=== PATIENT | female | born 1975 | race Caucasian/White ===

== ENCOUNTER → 2024-02-06 10:21 | Outpatient (REF) | payer OTHER, SELFPAY | LOC: RAD 10:21 | PROVIDERS: ATTENDING PHYSICIAN Nurse Practitioner; FAMILY PHYSICIAN Internal Medicine | DX: J40 Bronchitis, not specified as acute or chronic (principal) | CPT/HCPCS: 71046 ==

== ENCOUNTER → 2024-02-21 06:44 | Outpatient (REF) | payer OTHER, SELFPAY | LOC: PAVMRI 06:44 | PROVIDERS: ATTENDING PHYSICIAN Nurse Practitioner Family; FAMILY PHYSICIAN Internal Medicine | DX: I67.1 Cerebral aneurysm, nonruptured (principal) | CPT/HCPCS: 70544 ==

== ENCOUNTER → 2025-01-14 13:02 | Outpatient (REF) | payer OTHER, SELFPAY | LOC: RAD 13:02 | PROVIDERS: ATTENDING PHYSICIAN Nurse Practitioner; FAMILY PHYSICIAN Internal Medicine | DX: J40 Bronchitis, not specified as acute or chronic (principal) | CPT/HCPCS: 71046 ==

== ENCOUNTER 2025-06-21 13:10 | Emergency (ER) | payer OTHER, SELFPAY ==
[2025-06-21 13:12] VITALS: BP 123/89
[2025-06-21 14:00] VITALS: BP 127/87
[2025-06-21 14:01] VITALS: BMI 25.6
[2025-06-21 14:55] LABS: Hematocrit 39.6 % (37.0-47.0); Hemoglobin 14.1 g/dL (12.0-16.0); Mean Corp Hgb Conc. 35.6 g/dL (33.0-37.0); Mean Corpuscular Volume 87.8 fL (81.0-99.0); Nucleated Red Blood Cells % 0 %; Platelet Count 211 10^3/uL (130-400); Red Cell Dist. Width 12.6 % (11.5-14.5)
[2025-06-21 15:00] VITALS: BP 113/68
[2025-06-21 15:06] LABS: Blood Urea Nitrogen 19 mg/dl (7-17); Calcium 9.7 mg/dl (8.4-10.2); Carbon Dioxide 29 mmol/L (22-30); Chloride 103 mmol/L (98-107); Estimated Creatinine Clearance 73 ml/min; Glucose 91 mg/dl (70-99); Potassium 4.4 mmol/L (3.5-5.1); Sodium 138 mmol/L (135-145); eGFR > 60.00
--- NOTE | 2025-06-21 15:09 | ED.GENMED ---
History of Present Illness
General
Chief Complaint: Dizziness
Time Seen by Provider: 06/21/25 14:10
History of Present Illness
History of Present Illness:
Patient is a 50-year-old female with past medical history of brain aneurysm status post coils and non-Hodgkin's lymphoma in remission since 2010 who was sent in by her neurosurgery team as she has been complaining of headaches and 'feeling off' for
the past 2 weeks. Did a telehealth visit with her team this morning and they sent her to the ER for imaging. She has had a dull ache since 1 to 2 weeks that is episodic in nature. Also reports that while watching TV and seeing things across the
screen she has become nauseous and feel off balance. No recent falls.
Past History
Past History
ED Past Medical History: Other (Back pain) and Other (Hodgkin's lymphoma, back pain)
Social History
Tobacco: Non-smoker
Alcohol: Occasional
Personal:
Living: with family
Employment: Employed
Family History
Family History: Other (Brother with brain aneurysm)
Phy Exam
General Physical Exam
General Presentation: well appearing and no apparent distress
General Skin: warm and dry
General Habitus: normal
General Mental: alert
General Hydration: appears well hydrated
ENT Exam
ENT Exam: EOMI, pharynx normal, neck supple and normocephalic
Eye Exam
Eye Exam: PERRL, cornea clear and conjunctiva normal
Cardiovascular Exam
Cardiovascular Exam: regular rate/rhythm, no edema, no murmur and normal peripheral pulses
Pulmonary Exam
Pulmonary Exam: lungs clear, no respiratory distress, no rales, no crackles, no rhonchi, no stridor, no wheezing and no cough
Gastrointestinal Exam
Gastrointestinal Exam: normal bowel sounds, non tender, soft, no organomegaly, no pulsatile mass and non distended
Neurological Exam
Neurological Exam: alert, oriented x3, no motor deficits and speech normal
Musculoskeletal Exam
Musculoskeletal Exam: full ROM and no edema
Skin Exam
Skin Exam: normal color, warm/dry, no rash and no petechia
Psychiatric Exam
Psychiatric Exam: normal mood/affect
Course
Orders/Labs/Results
Orders:
Orders
06/21/25 14:28
CT Head & Neck Angio W/wo IV Urgent
Comment:
Reason For Exam: dizziness
06/21/25 14:40
Basic Metabolic Panel Urgent
Complete Blood Count/With Diff Urgent
06/21/25 15:03
Diphenhydramine [Benadryl] 50 mg IV NOW STA
Hydrocortisone Sod Succinate [Solu-Cortef] 200 mg IV NOW STA
Abnormal Lab Results
06/21/25
14:40
MCH 31.3 H pg
(27.0-31.0)
BUN 19 H mg/dl
(7-17)
06/21/25 14:40
06/21/25 14:40
Vital Signs
Initial and Last Documented VS:
Initial Vital Signs
Temp Pulse Resp BP Pulse Ox
36.5 C 74 19 123/89 98
06/21/25 13:12 06/21/25 13:12 06/21/25 13:12 06/21/25 13:12 06/21/25 13:12
Last Documented Vital Signs
Temp Pulse Resp BP Pulse Ox
36.5 C 74 18 134/76 98
06/21/25 13:12 06/21/25 17:40 06/21/25 17:40 06/21/25 17:40 06/21/25 17:40
MDM/Problems Addressed
Differential Diagnosis Includes:
BC movements. No worsening leukopenia or anemia. BMP also within normal limits. CT head and neck angio obtained and negative for any new intracerebral aneurysms or intracranial pathology. Discussed this with the patient and she states she is
currently headache free. Will continue to follow-up with neurosurgery and her primary care doctor if headaches continue. No neurologic deficits. Will discharge from the ER with strict return precautions.
*Pulse Oximetry
SaO2: 100
Oxygen Mode of Delivery: Room air
Patient hypoxic: no
*Critical Care Note
Total Time (30-74mins, 75-104mins- exclusive of procedures): Not Applicable
ED Attending Note
-
Portions of this chart may have been created with voice recognition software.� Occasional wrong word or��sound alike� substitutions may have occurred due to the inherent limitations of voice recognition software.
Discharge Plan
Departure
Patient Disposition: Home (Routine Discharge)
Date of Disposition: 06/21/25
Time of Disposition: 17:52
Patient with high blood pressure during this ER visit?: No
Discharge Problem:
Frequent headaches, History of intracranial aneurysm
Instructions: Headache in adults - ED (DC)
Prescriptions:
No Action
loratadine 10 MG tablet
10 mg PO DAILY
omeprazole magnesium [Prilosec OTC] 20 MG tablet,delayed release (DR/EC)
40 mg PO DAILY
Referrals:
Mae Gordillo MD [Family Provider, Internal Medicine]
Activity Restrictions/Additional Instructions:
May take Tylenol or Motrin if the headache recurs. Follow-up with your primary care doctor if you continue to have these headaches. Workup in the ER was negative for any acute intracranial process on imaging.
Interventions
Interventions:
*General Assessment Last Done: 06/21/25 13:15
*Neglect/Abuse Screening Last Done: 06/21/25 13:15
*ED COVID-19 Vaccine History Last Done: 06/21/25 13:15
*ED Influenza Vaccine History Last Done: 06/21/25 13:15
[facility] Fall Risk Assessment Tool Last Done: 06/21/25 13:11
*Risk Screen - Suicide (C-SSRS) Last Done: 06/21/25 13:15
ED- Neurological Assessment Last Done: 06/21/25 16:23
ED Swallowing Screen Last Done: 06/21/25 14:04
Discharge Date and Time
Print Language: BHUTANESE
[2025-06-21] MEDS: SOLU-CORTEF 200 MG IV (15:34)
[2025-06-21] MEDS: BENADRYL 50 MG IV (15:34)
[2025-06-21 17:40] VITALS: BP 134/76
== END 2025-06-21 18:10 | disposition home or self-care (01) ==
LOC: EMR 13:10
PROVIDERS: Surgery Trauma Surgery; EMERGENCY PHYSICIAN Emergency Medicine; FAMILY PHYSICIAN Internal Medicine
DX: R51.9 Headache, unspecified (principal); R42 Dizziness and giddiness; Z86.79 Personal history of other diseases of the circulatory system; Z85.71 Personal history of Hodgkin lymphoma
CPT/HCPCS: 99285; 96374; 96375; 70496; 70498; 80048; 85025; Q9967